=== PATIENT | male | born 1970 | race Caucasian/White ===

== ENCOUNTER → 2018-03-10 | Outpatient (CLI) | payer OTHER ==
[~2018-03-10] MED LIST: ASPIR-TRIN325 M1 PO; CRESTOR; CRESTOR10 MG PO; FISH OIL; LOVAZA1 GM PO; NASONEX17 GM NS; TRICOR145 MG PO; ZOCOR
== END | disposition home or self-care (01) ==
LOC: RAD 03-08 13:00
DX: I25.10 Atherosclerotic heart disease of native coronary artery without angina pectoris (principal)
CPT/HCPCS: 75574